=== PATIENT | female | born 1955 | race Caucasian/White ===

== ENCOUNTER 2018-05-16 12:45 | Inpatient (IN) | payer MEDICARE, MEDICAID ==
[~2018-05-16] VITALS: Ht 160 cm; Wt 84.1 kg
[2018-05-16 13:44] LABS: BASOPHILS % (AUTO) 0.4 % (0-1); EOSINOPHILS # (AUTO) 0.3 X10'3 (0-0.9); EOSINOPHILS % (AUTO) 2.5 % (0-6); HEMATOCRIT 44.7 % (35.0-45.0); HEMOGLOBIN 15.2 g/dl (12.0-16.0); LYMPHOCYTES # (AUTO) 4.7 X10'3 (1.1-4.8); LYMPHOCYTES % (AUTO) 44.5 % (21-51); MEAN CORPUSCULAR HEMOGLOBIN 30.7 PG (27.0-31.0); MEAN CORPUSCULAR HGB CONC 34.1 % (33.0-36.5); MEAN PLATELET VOLUME 8.2 FL (7.4-10.4); MONOCYTES # (AUTO) 0.8 X10'3 (0-0.9); MONOCYTES % (AUTO) 7.5 % (2-12); NEUTROPHILS # (AUTO) 4.8 X10'3 (1.8-7.7); NEUTROPHILS % (AUTO) 45.1 % (42-75); PLATELET COUNT 282 X10'3 (140-440); RED BLOOD COUNT 4.97 X10'6 (4.20-5.60); RED CELL DISTRIBUTION WIDTH 13.3 % (11.5-14.5); WHITE BLOOD COUNT 10.6 X10'3 (4.5-11.0)
[2018-05-16 13:57] LABS: INR 0.9 INR; PROTHROMBIN TIME 9.5 SECONDS (9.0-12.0)
[2018-05-16 14:02] LABS: ALANINE AMINOTRANSFERASE 24 U/L (12-78); ALBUMIN 3.9 G/DL (3.4-5.0); ALBUMIN/GLOBULIN RATIO 0.9 (1.1-1.5); ALKALINE PHOSPHATASE 121 IU/L (46-116); AMYLASE 68 U/L (25-115); ANION GAP 11 (8-16); ASPARTATE AMINO TRANSFERASE 19 U/L (10-37); BILIRUBIN,TOTAL 0.3 MG/DL (0.1-1.0); BLOOD UREA NITROGEN 25 MG/DL (7-18); BUN/CREATININE RATIO 22.7 (6.6-38.0); CALCIUM 9.3 MG/DL (8.5-10.1); CHLORIDE 101 MMOL/L (99-107); GLUCOSE 102 MG/DL (70-104); LIPASE 123 U/L (73-393); SODIUM 141 MMOL/L (135-145); TOTAL CARBON DIOXIDE 29.2 MMOL/L (24-32); TOTAL PROTEIN 8.3 G/DL (6.4-8.2); eGFR 51 ML/MIN
[2018-05-16] MEDS ORDERED: potassium Cl 40MEQ/NS 500ml 500 ML IV PRN (17:40)
[2018-05-16] MEDS ORDERED: mag hydrox/Alum hydrox/simeth 30ml oral suspension PO PRN (17:40)
[2018-05-16] MEDS ORDERED: acetaminophen 325mg tablet PO PRN (17:40)
[2018-05-16] MEDS ORDERED: potassium Cl 20 mEq SR tablet PO PRN ×2 (17:40)
[2018-05-16] MEDS ORDERED: magnesium hydroxide 30ml (MOM) UD suspension PO PRN (17:40)
[2018-05-16] MEDS ORDERED: HYDROcodone/acetaminophen 5mg/325mg tablet PO PRN (17:40)
[2018-05-16] MEDS: normal saline 1000ml 1,000 ML IV SCH ×2 (18:29→18:30)
[2018-05-16] MEDS: potassium Cl 40MEQ/NS 500ml 500 ML IV PRN ×3 (20:58→22:25)
[2018-05-16] MEDS: diatr meglu/diatrizoate 30ml oral sol.-(3 dose) bottle PO SCH (20:58)
[2018-05-16] MEDS: ondansetron/PF 4mg/2ml inj IV PRN (20:59)
[2018-05-16] MEDS ORDERED: temazepam 15mg capsule PO PRN (21:00)
[2018-05-16] MEDS ORDERED: morphine 2 MG/ML inj. syringe IV PRN (21:05)
[2018-05-16] MEDS: morphine 4 MG/ML inj SYRINge IV PRN (21:15)
[2018-05-16 21:18] LABS: CLARITY,URINE CLEAR (Clear); COLOR,URINE YELLOW (Yellow); GLUCOSE, URINE NEGATIVE (Neg); KETONES,URINE NEGATIVE (Neg); LEUKOCYTE ESTERASE ,URINE NEGATIVE (Neg); NITRITES, URINE NEGATIVE (Neg); OCCULT BLOOD,URINE TRACE-INTACT (Neg); PROTEIN,URINE NEGATIVE (Neg); UROBILINOGEN,URINE 0.2 E.U/dL (0.2-1.0)
[2018-05-16 21:21] LABS: UA COLLECTION TYPE CLN CATCH MIDSTREAM
[2018-05-16 21:24] LABS: WBC,URINE NONE SEEN /HPF (0-4)
[2018-05-16 21:25] LABS: BACTERIA,URINE NONE SEEN /HPF (Neg); RBC,URINE 0-2 /HPF (0-2); SQUAMOUS EPITHELIAL CELL,UR NONE SEEN /LPF (FEW)
[2018-05-16 22:01] VITALS: BP 130/80
[2018-05-17] VITALS (21 sets, daily range): BP systolic 90–139; BP diastolic 44–78
[2018-05-17] MEDS: morphine 4 MG/ML inj SYRINge IV PRN ×7 (00:52→20:02)
[2018-05-17] MEDS: potassium Cl 40MEQ/NS 500ml 500 ML IV PRN (00:57)
[2018-05-17 04:33] LABS: BASOPHILS # (AUTO) 0.1 X10'3 (0-0.2); BASOPHILS % (AUTO) 0.9 % (0-1); EOSINOPHILS # (AUTO) 0.3 X10'3 (0-0.9); EOSINOPHILS % (AUTO) 3.3 % (0-6); HEMATOCRIT 40.6 % (35.0-45.0); LYMPHOCYTES # (AUTO) 4.5 X10'3 (1.1-4.8); LYMPHOCYTES % (AUTO) 46.8 % (21-51); MEAN CORPUSCULAR HEMOGLOBIN 31.2 PG (27.0-31.0); MEAN CORPUSCULAR HGB CONC 34.4 % (33.0-36.5); MEAN CORPUSCULAR VOLUME 90.7 FL (78-98); MEAN PLATELET VOLUME 8.5 FL (7.4-10.4); MONOCYTES # (AUTO) 0.9 X10'3 (0-0.9); MONOCYTES % (AUTO) 9.6 % (2-12); NEUTROPHILS # (AUTO) 3.8 X10'3 (1.8-7.7); NEUTROPHILS % (AUTO) 39.4 % (42-75); PLATELET COUNT 240 X10'3 (140-440); RED BLOOD COUNT 4.48 X10'6 (4.20-5.60); RED CELL DISTRIBUTION WIDTH 13.2 % (11.5-14.5); WHITE BLOOD COUNT 9.6 X10'3 (4.5-11.0)
[2018-05-17 04:48] LABS: ALBUMIN 3.4 G/DL (3.4-5.0); ANION GAP 8 (8-16); BLOOD UREA NITROGEN 17 MG/DL (7-18); BUN/CREATININE RATIO 17.7 (6.6-38.0); CALCIUM 9.2 MG/DL (8.5-10.1); CHLORIDE 108 MMOL/L (99-107); CREATININE 0.96 MG/DL (0.40-0.90); GLUCOSE 84 MG/DL (70-104); POTASSIUM 4.3 MMOL/L (3.5-5.1); SODIUM 142 MMOL/L (135-145); TOTAL CARBON DIOXIDE 26.5 MMOL/L (24-32); eGFR 59 ML/MIN
[2018-05-17] MEDS: normal saline 1000ml 1,000 ML IV SCH ×2 (05:09→17:02)
[2018-05-17] MEDS: diatr meglu/diatrizoate 30ml oral sol.-(3 dose) bottle PO SCH ×2 (06:55→09:51)
[2018-05-17] MEDS: ondansetron/PF 4mg/2ml inj IV PRN (07:12)
[2018-05-17] MEDS ORDERED: USTE45DI SQ (07:51)
[2018-05-17] MEDS: K and/or MAG REPLACEMENT MC SCH (08:00)
[2018-05-17] MEDS ORDERED: PNV1TABL75 PO (09:08)
[2018-05-17] MEDS ORDERED: MAGN400C PO (09:08)
[2018-05-17] MEDS ORDERED: BIOT5TAB PO (09:08)
[2018-05-17] MEDS: acetaminophen 325mg tablet PO PRN (09:51)
[2018-05-17] MEDS ORDERED: iohexol 300mg/ml 100ml inj. ONE (10:24)
[2018-05-17] MEDS ORDERED: ringers solution, lacted 1,000 ML IV SCH (13:17)
[2018-05-17] MEDS ORDERED: fentaNYL/PF 50MCG/1 ML 2ML syringe IV PRN ×2 (13:20)
[2018-05-17] MEDS ORDERED: ondansetron/PF 4mg/2ml inj IV PRN (13:20)
[2018-05-17] MEDS ORDERED: hydrALAZINE 20mg/ml inj. IV PRN (13:20)
[2018-05-17] MEDS ORDERED: morphine 4 MG/ML inj SYRINge IV PRN (13:20)
[2018-05-17] MEDS ORDERED: labetalol 20mg/4ml (5mg/ml) syringe IV PRN (13:20)
[2018-05-17] MEDS ORDERED: sevoflurane 250ml liquid IH ONE (13:40)
[2018-05-17] MEDS ORDERED: ondansetron/PF 4mg/2ml inj ONE (13:40)
[2018-05-17] MEDS ORDERED: neostigmine methylsulfate 1 MG/ML 10ml vial ONE (13:40)
[2018-05-17] MEDS ORDERED: fentaNYL/PF 50MCG/1 ML 2ML syringe ONE ×2 (13:46→14:35)
[2018-05-17] MEDS ORDERED: rocuronium 10mg/ml inj IV ONE (13:47)
[2018-05-17] MEDS ORDERED: midazolam 2 mg/2 ml injection ONE (13:47)
[2018-05-17] MEDS ORDERED: propofol inj 20 ML IV ONE (13:47)
[2018-05-17] MEDS ORDERED: atropine 0.4 mg/ml 20ml vial ONE (14:03)
[2018-05-17] MEDS ORDERED: dexamethasone sod phosphate 4mg/ml inj. ONE (14:04)
[2018-05-17] MEDS ORDERED: meperidine/PF 25mg/ml syringe IV ONE (15:15)
[2018-05-17] MEDS ORDERED: meperidine/PF 25mg/ml syringe ONE (15:17)
[2018-05-17] MEDS ORDERED: ketorolac trometh. 30mg/ml inj. IV ONE (15:45)
[2018-05-17] MEDS ORDERED: acetaminophen 1,000mg/100ml IV 100 ML IV SCH (15:45)
[2018-05-18] MEDS: morphine 4 MG/ML inj SYRINge IV PRN ×2 (00:32→08:49)
[2018-05-18 00:39] VITALS: BP 108/69
[2018-05-18] MEDS: normal saline 1000ml 1,000 ML IV SCH (02:45)
[2018-05-18 04:49] VITALS: BP 112/54
[2018-05-18 07:22] VITALS: BP 104/65
[2018-05-18] MEDS: K and/or MAG REPLACEMENT MC SCH (08:00)
[2018-05-18] MEDS: acetaminophen 325mg tablet PO PRN (11:22)
[2018-05-18 11:38] VITALS: BP 107/70
[2018-05-18] MEDS ORDERED: ACET-3067 PO (13:20)
== END 2018-05-18 15:31 | disposition home or self-care (01) | DRG 419 ==
LOC: ER 12:46 → ED HOLD 17:38 → SUR 3N 20:40 → OBSVTOIN 05-17 12:00 → PACU 05-17 13:01 → SUR 3N 05-17 16:31
PROVIDERS: ADMIT Hospitalist; ATTEND Family Medicine
PROC: BW211ZZ Computerized Tomography (CT Scan) of Abdomen and Pelvis using Low Osmolar Contrast (ICD-10-PCS; 2018-05-17)
PROC: 0FT44ZZ Resection of Gallbladder, Percutaneous Endoscopic Approach (ICD-10-PCS; principal; 2018-05-17 13:45)
DX: K80.00 Calculus of gallbladder with acute cholecystitis without obstruction (principal); E86.0 Dehydration; E87.6 Hypokalemia; M54.9 Dorsalgia, unspecified; J44.9 Chronic obstructive pulmonary disease, unspecified; G89.4 Chronic pain syndrome; Z96.652 Presence of left artificial knee joint; Z88.8 Allergy status to other drugs, medicaments and biological substances
CPT/HCPCS: 36415; 71045; 74177; 76700; 80048; 80053; 81001; 82150; 83690; 85025; 85610; 85730; 87070; 88304; 93005; 99285; A7000; G0378; J0131; J0461; J1100; J1885; J2175; J2250; J2270; J2405; J2704; J2710; J3010; J3480; J7030; J7120; Q9963; Q9967

== ENCOUNTER 2018-05-21 11:38 | Emergency (ER) | payer MEDICARE, MEDICAID ==
[~2018-05-21] VITALS: Ht 160 cm; Wt 78.0 kg
[~2018-05-21 11:38] MED LIST: ACET-3067 PO; BIOT5TAB PO; MAGN400C PO; PNV1TABL75 PO; USTE45DI SQ
[2018-05-21] MEDS ORDERED: ondansetron/PF 4mg/2ml inj IV ONE (11:45)
[2018-05-21] MEDS ORDERED: morphine 4 MG/ML inj SYRINge IV ONE ×2 (11:45→13:30)
[2018-05-21] MEDS ORDERED: normal saline 1000ML IV soln IV ONE (11:45)
[2018-05-21] MEDS ORDERED: iohexol 300mg/ml 100ml inj. ONE (11:59)
[2018-05-21 12:17] LABS: BASOPHILS % (AUTO) 0.3 % (0-1); EOSINOPHILS # (AUTO) 0.1 X10'3 (0-0.9); EOSINOPHILS % (AUTO) 0.9 % (0-6); HEMATOCRIT 43.5 % (35.0-45.0); HEMOGLOBIN 14.8 g/dl (12.0-16.0); LYMPHOCYTES # (AUTO) 2.7 X10'3 (1.1-4.8); LYMPHOCYTES % (AUTO) 21.7 % (21-51); MEAN CORPUSCULAR HEMOGLOBIN 30.8 PG (27.0-31.0); MEAN CORPUSCULAR VOLUME 90.7 FL (78-98); MEAN PLATELET VOLUME 8.6 FL (7.4-10.4); MONOCYTES % (AUTO) 7.8 % (2-12); NEUTROPHILS # (AUTO) 8.6 X10'3 (1.8-7.7); NEUTROPHILS % (AUTO) 69.3 % (42-75); PLATELET COUNT 253 X10'3 (140-440); RED CELL DISTRIBUTION WIDTH 13.5 % (11.5-14.5); WHITE BLOOD COUNT 12.4 X10'3 (4.5-11.0)
[2018-05-21 12:28] LABS: PARTIAL THROMBOPLASTIN TIME 25 SECONDS (22-32); PROTHROMBIN TIME 9.9 SECONDS (9.0-12.0)
[2018-05-21 12:36] LABS: ALANINE AMINOTRANSFERASE 75 U/L (12-78); ALBUMIN 3.7 G/DL (3.4-5.0); ALBUMIN/GLOBULIN RATIO 0.9 (1.1-1.5); ALKALINE PHOSPHATASE 129 IU/L (46-116); ANION GAP 13 (8-16); ASPARTATE AMINO TRANSFERASE 59 U/L (10-37); BILIRUBIN,TOTAL 0.7 MG/DL (0.1-1.0); BLOOD UREA NITROGEN 13 MG/DL (7-18); BUN/CREATININE RATIO 13.3 (6.6-38.0); CALCIUM 9.1 MG/DL (8.5-10.1); CHLORIDE 101 MMOL/L (99-107); CREATININE 0.98 MG/DL (0.40-0.90); GLUCOSE 91 MG/DL (70-104); POTASSIUM 3.3 MMOL/L (3.5-5.1); SODIUM 139 MMOL/L (135-145); TOTAL CARBON DIOXIDE 24.7 MMOL/L (24-32); eGFR 58 ML/MIN
[2018-05-21 12:41] LABS: LIPASE 54 U/L (73-393); MAGNESIUM 1.9 MG/DL (1.5-2.4); TROPONIN I < 0.04 NG/ML (0.0-0.05)
[2018-05-21 12:50] LABS: CLARITY,URINE CLEAR (Clear); COLOR,URINE YELLOW (Yellow); GLUCOSE, URINE NEGATIVE (Neg); KETONES,URINE 15 mg/dl (Neg); LEUKOCYTE ESTERASE ,URINE NEGATIVE (Neg); NITRITES, URINE NEGATIVE (Neg); OCCULT BLOOD,URINE SMALL (Neg); PROTEIN,URINE NEGATIVE (Neg)
[2018-05-21 12:58] LABS: UA COLLECTION TYPE NON-SPECIFIED
[2018-05-21 12:59] LABS: BACTERIA,URINE NONE SEEN /HPF (Neg); MUCUS STRANDS NONE SEEN /LPF (Neg); RBC,URINE 0-2 /HPF (0-2); SQUAMOUS EPITHELIAL CELL,UR FEW /LPF (FEW); WBC,URINE 0-4 /HPF (0-4)
[2018-05-21 13:06] VITALS: BP 143/92
[2018-05-21] MEDS ORDERED: HYDR-3965 PO (13:29)
== END 2018-05-21 14:46 | disposition home or self-care (01) ==
LOC: ER 11:38
DX: G89.18 Other acute postprocedural pain (principal); R10.11 Right upper quadrant pain; R11.0 Nausea; G89.29 Other chronic pain; Z90.49 Acquired absence of other specified parts of digestive tract; Z88.8 Allergy status to other drugs, medicaments and biological substances; Z79.899 Other long term (current) drug therapy; Z56.0 Unemployment, unspecified
CPT/HCPCS: 36415; 71045; 74177; 80053; 81001; 83605; 83690; 83735; 84145; 84484; 85025; 85610; 85730; 87040; 96374; 96375; 99285; J2270; J2405; J7030; Q9967